=== PATIENT | male | born 1960 | race Caucasian/White ===

== ENCOUNTER 2023-01-14 07:56 | Emergency (ER) | payer OTHER ==
[~2023-01-14] VITALS: Ht 182.9 cm; Wt 81.7 kg
--- OUTSIDE RECORDS SUMMARY | 2023-01-14 08:03 | XMS ---
PreManage Notification: KODI FRANKEL Security Animal Treatment Investigator Events 1 event(s) in the past 18 months Most recent security events: Elopement at [facility] 10/31/2022 08:01 - Patient eloped before treatment completed. - Patient with suicidal and/or homicidal ideations eloped. - Patient eloped with IV in place. Details: Patient LWBS. CRITERIA MET - Group Notification CARE PROVIDERS There are no care providers on record at this time. Tushar has no Care Guidelines for this patient. E.D. VISIT COUNT (12 MO.) 2 [facility]. TOTAL 2 NOTE: Visits indicate total known visits. ED/C VISIT TRACKING (12 MO.) 01/14/2023 07:57 [facility] TYPE: Emergency COMPLAINT: - UPPER ABD PAIN, COLD, SWEATS, VOMITING 10/31/2022 08:01 [facility] [place] TYPE: Emergency COMPLAINT: - DIFFICULTY SWALLOWING, SORE THROAT INPATIENT VISIT TRACKING (12 MO.) No inpatient visits to display in this time frame [id number]
--- NOTE | 2023-01-15 21:39 | EKG ---
[facility] [address] [facility] [place], [place] [address] Signed Normal sinus rhythm Left anterior fascicular block Possible Inferior infarct , age undetermined Anteroseptal infarct , possibly acute ACUTE OK / STEMI Abnormal ECG No previous ECGs available Confirmed by Pradeep Christina MD () on 01/15/2023 9:39:08 PM Electronically Signed By: PRADEEP CHRISTINA MD 01/15/23 2139 PATIENT NAME: KODI FRANKEL Electrocardiogram DATE OF : 62 PHYSICIAN: PRADEEP CHRISTINA MD REPORT #: [id number] REPORT IS CONFIDENTIAL AND NOT TO BE RELEASED WITHOUT AUTHORIZATION
== END 2023-01-14 08:52 | disposition short-term general hospital (02) ==
LOC: ED 07:56
DX: I21.3 ST elevation (STEMI) myocardial infarction of unspecified site (principal); F17.200 Nicotine dependence, unspecified, uncomplicated
CPT/HCPCS: 36415; 71045; 80053; 83690; 84484; 85025; 87502; 93005; 93010; 96374; 96375; 99285-25; A9270; C9803; J1170; J1644; J2405; U0003

== ENCOUNTER 2023-04-03 12:00 | Emergency (ER) | payer OTHER ==
[~2023-04-03] VITALS: Ht 182.9 cm; Wt 86.6 kg
[~2023-04-03 12:00] MED LIST: ENTRESTO 24 MG1 EACH PO; INVOKANA100 MG PO; JARDIANCE10 MG PO; LASIX40 MG PO; LIPITOR80 MG PO; LO-DOSE ASPIRIN81 MG PO; NITROSTAT0.4 MG PO; PLAVIX75 MG PO; PROTONIX40 MG PO; SPIRONOLACTONE25 MG PO; TOPROL XL50 MG PO; WARFARIN SODIUM6 MG PO
--- OUTSIDE RECORDS SUMMARY | 2023-04-03 12:09 | XMS ---
PreManage Notification: KODI FRANKEL Security Mimeograph Operator Events 1 event(s) in the past 18 months Most recent security events: Elopement at [facility] 10/31/2022 08:01 - Patient eloped before treatment completed. - Patient with suicidal and/or homicidal ideations eloped. - Patient eloped with IV in place. Details: Patient LWBS. CRITERIA MET - Group Notification CARE PROVIDERS -Charley- Dentist: Field Test Engineer [facility] PHONE: [phone] Tushar has no Care Guidelines for this patient. EEfren. V[facility] ([facility] MO[address] [facility] NOTE: Visits indicate total known visits. ED/UCC VISIT TRACKING (12 MO.) 04/03/2023 12:01 [facility] TYPE: Emergency COMPLAINT: - FOREIGN OBJECT IN L EYE 01/14/2023 07:57 [facility] TYPE: Emergency COMPLAINT: - UPPER ABD PAIN, COLD, SWEATS, VOMITING DIAGNOSES: - Contact with and (suspected) exposure to COVID-19 - Epigastric pain - Nicotine dependence, unspecified, uncomplicated - ST elevation (STEMI) myocardial infarction of unspecified site 10/31/2022 08:01 [facility] [place] TYPE: Emergency COMPLAINT: - DIFFICULTY SWALLOWING, SORE THROAT INPATIENT VISIT TRACKING (12 MO.) 01/14/2023 10:05 [facility] TYPE: Internal Medicine DIAGNOSES: - Acute systolic (congestive) heart failure - Encounter for screening, unspecified - Ischemic cardiomyopathy - ST elevation (STEMI) myocardial infarction involving left anterior descending coronary artery - Evaluation Of Abnormal Ekg [email or web address]
[2023-04-03] MEDS ORDERED: PANTOPRAZOLE SO40 MG PO (12:52)
[2023-04-03] MEDS ORDERED: CLOPIDOGREL75 MG PO (12:52)
[2023-04-03 13:57] VITALS: BP 101/79
== END 2023-04-03 13:59 | disposition home or self-care (01) ==
LOC: ED 12:00
DX: H57.89 Other specified disorders of eye and adnexa (principal); I10 Essential (primary) hypertension; F17.200 Nicotine dependence, unspecified, uncomplicated; Z79.899 Other long term (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; Z79.01 Long term (current) use of anticoagulants
CPT/HCPCS: 99283

== ENCOUNTER 2023-11-29 06:46 | Emergency (ER) | payer OTHER ==
[~2023-11-29] VITALS: Ht 182.9 cm; Wt 87.8 kg
[~2023-11-29 06:46] MED LIST changes: +CLOPIDOGREL75 MG PO; +PANTOPRAZOLE SO40 MG PO
--- OUTSIDE RECORDS SUMMARY | 2023-11-29 06:55 | XMS ---
PreManage Notification: KODI FRANKEL Security Kennel Assistant Events 1 event(s) in the past 18 months Most recent security events: Elopement at [facility] 10/31/2022 08:01 - Patient eloped with IV in place. - Patient eloped before treatment completed. - Patient with suicidal and/or homicidal ideations eloped. Details: Patient LWBS. CRITERIA MET - Group Notification CARE PROVIDERS -Charley- Dentist: Veterinary Technologist [facility] PHONE: [phone] Tushar has no Care Guidelines for this patient. EEfren. VISIT COUNT (12 MO.) [facility] TOTAL 3 NOTE: Visits indicate total known visits. 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 - Other specified disorders of eye and adnexa 01/14/2023 07:57 [facility] [place] TYPE: Emergency COMPLAINT: - UPPER ABD PAIN, COLD, SWEATS, VOMITING DIAGNOSES: - Contact with and (suspected) exposure to COVID-19 - Epigastric pain - Nicotine dependence, unspecified, uncomplicated - ST elevation (STEMI) myocardial infarction of unspecified site INPATIENT VISIT TRACKING (12 MO.) 01/14/2023 10:05 [facility] TYPE: Internal Medicine DIAGNOSES: - Acute systolic (congestive) heart failure - Encounter for screening, unspecified - Ischemic cardiomyopathy - ST elevation (STEMI) myocardial infarction involving left anterior descending coronary artery - Evaluation Of Abnormal Ekg [id number]
[2023-11-29 07:44] LABS: INFLUENZA B NAA NEGATIVE (NEGATIVE); RESPIRATORY SYNCYTIAL VIR NAA NEGATIVE (NEGATIVE)
[2023-11-29 08:15] LABS: MCV 90.6 fl (81-99)
[2023-11-29 08:19] LABS: EOSINOPHILS 0.8 % (0-6); HEMATOCRIT 41.9 % (35.0-50.0); HEMOGLOBIN 13.8 g/dL (12.0-18.0); LYMPHOCYTES 7.1 % (24-44); MCH 29.9 (27-36); MONOCYTES 9.6 % (0-12); NEUTROPHILS 81.5 % (39-80); PLATELET COUNT 196 K/uL (140-440); RBC 4.63 M/ul (4.3-5.7); RDW 14.8 (10.5-15.0)
[2023-11-29 08:29] LABS: ALBUMIN 3.6 g/dL (3.4-5.0); ALBUMIN/GLOBULIN RATIO 0.92 (1.1-2.4); ANION GAP 14.8 (7-21); BILIRUBIN, TOTAL 0.5 ng/dL (0.2-1.0); BUN/CREATININE RATIO 11.59 (6.0-28.6); CALCIUM 8.4 mg/dL (8.5-10.1); CREATININE, SERUM 1.38 mg/dL (0.70-1.30); POTASSIUM 3.8 mmol/L (3.5-5.1); PROTEIN, TOTAL 7.5 g/dL (6.4-8.2)
[2023-11-29 08:32] LABS: LACTIC ACID, BLOOD 0.9 mmol/L (0.4-2.0)
[2023-11-29] MEDS ORDERED: TAMIFLU75 MG PO (09:35)
[2023-11-29] MEDS ORDERED: VENTOLIN HFA18 GM INH (09:38)
[2023-11-29 09:50] VITALS: BP 171/82
--- NOTE | 2023-11-29 16:38 | EKG ---
[facility] [address] [facility] [place], [place] [address] Signed Normal sinus rhythm Left anterior fascicular block Cannot rule out Inferior infarct (masked by fascicular block?) , age undetermined Anteroseptal infarct , age undetermined Abnormal ECG No previous ECGs available Confirmed by FARHAN RAUSCH MD ([id number]) on 11/29/2023 4:38:44 PM Electronically Signed By: FARHAN RAUSCH 11/29/23 1638 PATIENT NAME: KODI FRANKEL Electrocardiogram DATE OF : 62 PHYSICIAN: FARHAN RAUSCH REPORT #: [id number] REPORT IS CONFIDENTIAL AND NOT TO BE RELEASED WITHOUT AUTHORIZATION
== END 2023-11-29 09:51 | disposition home or self-care (01) ==
LOC: ED 06:46
PROVIDERS: Emergency Medicine
DX: J10.1 Influenza due to other identified influenza virus with other respiratory manifestations (principal); I25.10 Atherosclerotic heart disease of native coronary artery without angina pectoris; I10 Essential (primary) hypertension; F17.200 Nicotine dependence, unspecified, uncomplicated; Z11.52 Encounter for screening for COVID-19; Z79.02 Long term (current) use of antithrombotics/antiplatelets; Z79.01 Long term (current) use of anticoagulants; Z79.84 Long term (current) use of oral hypoglycemic drugs; Z79.899 Other long term (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
CPT/HCPCS: 36415; 71045; 71260; 80053; 83605; 85025; 87502; 94640; 99285-25; Q9967; U0002

== ENCOUNTER 2024-11-23 15:11 | Emergency (ER) | payer OTHER ==
[~2024-11-23] VITALS: Ht 182.9 cm; Wt 82.6 kg
[~2024-11-23 15:11] MED LIST changes: +K-TAB ER20 MEQ PO; +LASIX20 MG PO; +TAMIFLU75 MG PO; +VENTOLIN HFA18 GM INH
--- OUTSIDE RECORDS SUMMARY | 2024-11-23 15:18 | XMS ---
PreManage Notification: KODI FRANKEL Security Pharmacy Customer Care Specialist Events No recent Security Events currently on file CRITERIA MET - Group Notification CARE PROVIDERS -, [facility] Dentist: Electric Wirer Current [place] PHONE: [phone] -Charley- Dentist: Electric Wirer Current [facility] PHONE: [phone] [facility]: [facility] Current FAMILY PHONE: [phone] Tushar has no Care Guidelines for this patient. E.D. VISIT COUNT (12 MO.) 3 [facility] TOTAL 3 NOTE: Visits indicate total known visits. ED/UCC VISIT TRACKING (12 MO.) 11/23/2024 15:12 [facility] TYPE: Emergency COMPLAINT: - TROUBLE BREATHING 01/17/2024 13:30 [facility] TYPE: Emergency COMPLAINT: - SOB, COUGH, CHEST CONGESTION DIAGNOSES: - Cough, unspecified - Heart failure, unspecified - Hypertensive heart disease with heart failure - meterman (current) use of anticoagulants - group home (current) use of antithrombotics/antiplatelets - group home (current) use of oral hypoglycemic drugs - Nicotine dependence, unspecified, uncomplicated - Other lobsterman (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 - Other specified symptoms and signs involving the circulatory and respiratory systems 11/29/2023 06:[address] [facility] [place] TYPE: Emergency COMPLAINT: - SOB, FEEL SICK DIAGNOSES: - Atherosclerotic heart disease of [place] coronary artery without angina pectoris - Cough, unspecified - Encounter for screening for COVID-19 - Essential (primary) hypertension - Influenza due to other identified influenza virus with other respiratory manifestations - group home (current) use of anticoagulants - group home (current) use of antithrombotics/antiplatelets - group home (current) use of oral hypoglycemic drugs - Nicotine dependence, unspecified, uncomplicated - Other lobsterman (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 INPATIENT VISIT TRACKING (12 MO.) No inpatient visits to display in this time frame [id number]
[2024-11-23] MEDS ORDERED: ALBUTEROL/IPRATROPIUM 3 ML NEB INH PRN (15:30)
[2024-11-23 15:40] LABS: EOSINOPHILS 1.8 % (0-6); HEMATOCRIT 35.6 % (35.0-50.0); HEMOGLOBIN 11.8 g/dL (12.0-18.0); LYMPHOCYTES 11.2 % (24-44); MCH 28.7 (27-36); MCHC 33.2 g/dl (30-36); MCV 86.4 fl (81-99); MONOCYTES 9.7 % (0-12); NEUTROPHILS 76.3 % (39-80); PLATELET COUNT 249 K/uL (140-440); RBC 4.11 M/ul (4.3-5.7); RDW 15.3 (10.5-15.0)
[2024-11-23 16:03] LABS: ALBUMIN 2.9 g/dL (3.4-5.0); ALBUMIN/GLOBULIN RATIO 0.83 (1.1-2.4); ANION GAP 11.2 (7-21); BILIRUBIN, TOTAL 0.5 ng/dL (0.2-1.0); BUN/CREATININE RATIO 19.37 (6.0-28.6); CALCIUM 8.1 mg/dL (8.5-10.1); CREATININE, SERUM 1.29 mg/dL (0.70-1.30); MAGNESIUM 2.1 mg/dL (1.8-2.4); POTASSIUM 4.2 mmol/L (3.5-5.1); PROTEIN, TOTAL 6.4 g/dL (6.4-8.2)
[2024-11-23] MEDS ORDERED: LASIX20 MG PO (18:34)
[2024-11-23 18:59] VITALS: BP 154/106
--- NOTE | 2024-11-25 20:30 | EKG ---
[facility] [address] [facility] [place] [address] Signed Sinus rhythm with occasional premature ventricular complexes Low voltage QRS Left anterior fascicular block Cannot rule out Anteroseptal infarct (cited on or before 23-NOV-2024) Abnormal ECG When compared with ECG of 17-JAN-2024 16:29, premature ventricular complexes are now present Left anterior fascicular block is now present Questionable change in initial forces of Lateral leads Confirmed by Sera Goetz DO ([id number]) on 11/25/2024 8:30:27 PM Electronically Signed By: SERA GOETZ DO 11/25/24 2030 PATIENT NAME: KODI FRANKEL Electrocardiogram DATE OF : 62 PHYSICIAN: SERA GOETZ DO REPORT #: [id number] REPORT IS CONFIDENTIAL AND NOT TO BE RELEASED WITHOUT AUTHORIZATION
== END 2024-11-23 19:59 | disposition home or self-care (01) ==
LOC: ED 15:11
PROVIDERS: Emergency Medicine
DX: I11.0 Hypertensive heart disease with heart failure (principal); I50.9 Heart failure, unspecified; T50.1X6A Underdosing of loop [high-ceiling] diuretics, initial encounter; F17.200 Nicotine dependence, unspecified, uncomplicated; Z79.899 Other long term (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; Z91.148 Patient's other noncompliance with medication regimen for other reason
CPT/HCPCS: 36415; 71045; 80053; 83735; 83880; 84484; 85025; 93005; 93010; 99285-25

== ENCOUNTER 2024-11-28 22:51 | Inpatient (IN) | payer OTHER ==
[~2024-11-28] VITALS: Ht 182.9 cm; Wt 75.0 kg
--- OUTSIDE RECORDS SUMMARY | 2024-11-28 22:59 | XMS ---
PreManage Notification: KODI FRANKEL Security Line Prep Cook Events No recent Security Events currently on file CRITERIA MET - Group Notification - [facility] - 2 Visits in 30 Days CARE PROVIDERS -, [facility] Dentist: Deputy Director Of Finance [facility] PHONE: [phone] -Charley- Dentist: Deputy Director Of Finance Current [facility] PHONE: [phone] [facility]/Caroline: [facility] Current FAMILY PHONE: [phone] Tushar has no Care Guidelines for this patient. E.D. VISIT COUNT (12 MO.) 4 [facility] TOTAL 4 NOTE: Visits indicate total known visits. ED/UCC VISIT TRACKING (12 MO.) 11/28/2024 22:52 [facility] TYPE: Emergency COMPLAINT: - DIFFICULTY BREATHING 11/23/2024 15:12 [facility] TYPE: Emergency COMPLAINT: - TROUBLE BREATHING DIAGNOSES: - Heart failure, unspecified - Hypertensive heart disease with heart failure - Nicotine dependence, unspecified, uncomplicated - Other watermaster (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 - Patient's other noncompliance with medication regimen for other reason - Shortness of breath - Underdosing of loop [high-ceiling] diuretics, initial encounter 01/17/2024 13:30 [facility] TYPE: Emergency COMPLAINT: - SOB, COUGH, CHEST CONGESTION DIAGNOSES: - Cough, unspecified - Heart failure, unspecified - Hypertensive heart disease with heart failure - tank terminal gauger (current) use of anticoagulants - detention (current) use of antithrombotics/antiplatelets - detention (current) use of oral hypoglycemic drugs - Nicotine dependence, unspecified, uncomplicated - Other intermediate (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 - Other specified symptoms and signs involving the circulatory and respiratory systems 11/29/2023 06:46 [facility] TYPE: Emergency COMPLAINT: - SOB, FEEL SICK DIAGNOSES: - Atherosclerotic heart disease of [place] coronary artery without angina pectoris - Cough, unspecified - Encounter for screening for COVID-19 - Essential (primary) hypertension - Influenza due to other identified influenza virus with other respiratory manifestations - tank terminal gauger (current) use of anticoagulants - detention (current) use of antithrombotics/antiplatelets - tank terminal gauger (current) use of oral hypoglycemic drugs - Nicotine dependence, unspecified, uncomplicated - Other intermediate (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 INPATIENT VISIT TRACKING (12 MO.) No inpatient visits to display in this time frame [id number]
[2024-11-28] MEDS ORDERED: ALBUTEROL/IPRATROPIUM 3 ML NEB INH ONE (23:15)
[2024-11-28 23:37] LABS: BASOPHILS 0.9 % (0-2); EOSINOPHILS 0.6 % (0-6); HEMATOCRIT 38.1 % (35.0-50.0); HEMOGLOBIN 12.6 g/dL (12.0-18.0); LYMPHOCYTES 8.3 % (24-44); MCH 28.4 (27-36); MCHC 33.1 g/dl (30-36); MCV 85.8 fl (81-99); MONOCYTES 7.9 % (0-12); NEUTROPHILS 82.3 % (39-80); PLATELET COUNT 319 K/uL (140-440); RBC 4.44 M/ul (4.3-5.7); RDW 15.3 (10.5-15.0)
[2024-11-28] MEDS ORDERED: ALBUTEROL SULFATE 0.5% 2.5 MG/0.5 ML VIAL INH ONE (23:45)
[2024-11-28] MEDS ORDERED: methylPREDNISolone SOD SUCC 125 MG/2 ML VIAL IV ONE (23:45)
[2024-11-28 23:57] LABS: ALBUMIN 2.7 g/dL (3.4-5.0); ALBUMIN/GLOBULIN RATIO 0.63 (1.1-2.4); ANION GAP 9.8 (7-21); BILIRUBIN, TOTAL 0.4 ng/dL (0.2-1.0); BUN/CREATININE RATIO 9.48 (6.0-28.6); CALCIUM 8.7 mg/dL (8.5-10.1); CREATININE, SERUM 1.37 mg/dL (0.70-1.30); POTASSIUM 3.8 mmol/L (3.5-5.1)
[2024-11-29] VITALS (13 sets, daily range): BP systolic 102–154; BP diastolic 69–116
[2024-11-29] MEDS ORDERED: FUROSEMIDE 40 MG/4 ML VIAL IV ONE (00:15)
[2024-11-29 01:31] LABS: BASE EXCESS, BLOOD GAS 2.2 mmol/L (-2-2); HCO3, BLOOD GAS 25.5 mmol/L (22-26); O2 SATURATION, BLOOD GAS 89.9 % (95.0-100.0); PCO2, BLOOD GAS 36.2 mmHg (35-45); PH, BLOOD GAS 7.46 (7.35-7.45); TOTAL CO2, BLOOD GAS 26.6
[2024-11-29 02:04] LABS: INFLUENZA B NAA NEGATIVE (NEGATIVE); RESPIRATORY SYNCYTIAL VIR NAA NEGATIVE (NEGATIVE)
[2024-11-29] MEDS ORDERED: AZITHROMYCIN 500 MG in DEXTROSE 5% 250 ML IV ONE (02:45)
[2024-11-29] MEDS ORDERED: CEFTRIAXONE/SODIUM CHLORIDE 2 GM/100 ML PIGGYBACK IV ONE (02:45)
[2024-11-29] MEDS ORDERED: AZITHROMYCIN/DEXTROSE 500 MG/250 ML PIGGYBACK ONE (02:48)
[2024-11-29] MEDS ORDERED: ALBUTEROL/IPRATROPIUM 3 ML NEB INH SCH ×2 (04:00→04:45)
[2024-11-29] MEDS ORDERED: ACETAMINOPHEN 325 MG TAB PO PRN ×2 (04:45→10:15)
[2024-11-29] MEDS ORDERED: ALBUTEROL/IPRATROPIUM 3 ML NEB ONE (04:47)
--- NOTE | 2024-11-29 05:24 | NUR ---
PATIENT KODI ARRIVED TO THE UNIT VIA [facility] AT 0422. HE WAS REQUIRING 15L NC WHICH WAS SWITCHED TO VAPOTHERM 30L/ 40% ALERT AND ORIENTED X4, SLURRED SPEECH DUE TO MISSING TEETH, ABLE TO STAND AND WALK AT BASELINE, PERRL, GOOD HISTORIAN, ENDORSES COMFORT CARDIAC- SR-ST, 1+ EDEMA IN BILATERAL LOWER EXTREMTIES, AFEBRILE, PALPABLE PULSES RESP- COARSE/ DIMINISHED/ WHEEZING, VAPOTHERM 30L/ 40%, 87-92 SPO2 GOAL GI/- CLEAR LIQUID DIET, ENDORSES GOOD APPETITE, NORMOACTIVE BOWEL TONES, LAST BOWEL MOVEMENT 11/28/24, SARA INT- SEE ASSESSMENT 20G RIGHT FOREARM PATENT AND INTACT
--- NOTE | 2024-11-29 06:59 | NUR ---
SPO2 95%. VAPOTHERM ADJUSTED TO 25L 40% FOR AN O2 GOAL OF 87-92%
[2024-11-29 07:33] LABS: BASOPHILS 0.1 % (0-2); HEMATOCRIT 38.3 % (35.0-50.0); HEMOGLOBIN 12.8 g/dL (12.0-18.0); LYMPHOCYTES 3.6 % (24-44); MCH 28.4 (27-36); MCHC 33.5 g/dl (30-36); MCV 84.6 fl (81-99); MONOCYTES 1.8 % (0-12); NEUTROPHILS 94.5 % (39-80); PLATELET COUNT 313 K/uL (140-440); RBC 4.53 M/ul (4.3-5.7); RDW 15.4 (10.5-15.0)
[2024-11-29 07:43] LABS: ANION GAP 13.5 (7-21); BUN/CREATININE RATIO 8.28 (6.0-28.6); CALCIUM 8.4 mg/dL (8.5-10.1); CREATININE, SERUM 1.69 mg/dL (0.70-1.30); POTASSIUM 3.5 mmol/L (3.5-5.1)
[2024-11-29] MEDS ORDERED: BUDESONIDE 0.5 MG/2 ML VIAL INH SCH (08:00)
--- NOTE | 2024-11-29 08:06 | NUR ---
Report received from Jane EGAN. Patient resting in bed after neb tx with vapotherm in place, settings per RT. 30L and FIO2 at 40% currently. Even and unlabored respirations with spo2 90%.
--- NOTE | 2024-11-29 08:51 | NUR ---
Assessment of patient complete. Pt states with prior MD and stent experience that his symptoms now do not resemble that time. He reports no CP or SOB. When asked he states he cannot remember his last alcohol intake, states "it's been a long while" and currently cutting down on his smoking to "1 cigar per week, down from 2-3, but uses chewing tobacco" denies needing nicotine patch at this time. Pt is diaphoretic but afebrile. Remains on vapotherm with spo2 94%, patient has trouble keeping cannula in place.
[2024-11-29] MEDS ORDERED: LACTATED RINGER'S 1,000 ML IV SCH (10:15)
[2024-11-29] MEDS ORDERED: ondansetron HCL 4 MG/2 ML VIAL IV PRN (10:15)
[2024-11-29] MEDS ORDERED: methylPREDNISolone SOD SUCC 40 MG/ML VIAL IV SCH (10:15)
[2024-11-29] MEDS ORDERED: IBLOOD GLUCOSE TEST STRIP 1 EA TEST XX PRN (10:30)
[2024-11-29] MEDS ORDERED: DEXTROSE 5% 1,000 ML IV PRN (10:30)
[2024-11-29] MEDS ORDERED: GLUCAGON,HUMAN RECOMBINANT 1 MG/ML VIAL SUB-Q PRN (10:30)
[2024-11-29] MEDS ORDERED: DEXTROSE 50% 50 ML SYR IV PRN ×2 (10:30)
--- NOTE | 2024-11-29 11:04 | NUR ---
Scheduled medications administered and IVF infusing. Patient educated regarding CT scan and is receptive.
--- NOTE | 2024-11-29 11:35 | NUR ---
Patient to CT with this RN
[2024-11-29] MEDS ORDERED: INSULIN LISPRO 100 UNIT/ML ML SUB-Q SCH (12:00)
[2024-11-29] MEDS ORDERED: PHARMACY RENAL DOSE ADJUSTMENT 1 DOSE MISC PO SCH (12:00)
[2024-11-29] MEDS ORDERED: IBLOOD GLUCOSE TEST STRIP 1 EA TEST XX SCH (12:00)
--- NOTE | 2024-11-29 12:30 | NUR ---
CBG checked and insulin given and patient given extensive education regarding glucose testing and treatment, POC. pt is agreeable and states "my mother had diabetes, it is controllable with diet" this RN provides encouragement and education.
[2024-11-29] MEDS ORDERED: metroNIDAZOLE 250 MG TAB PO SCH (13:15)
[2024-11-29] MEDS ORDERED: AZITHROMYCIN 250 MG TAB PO SCH (13:15)
[2024-11-29] MEDS ORDERED: CEFTRIAXONE/SODIUM CHLORIDE 1 GM/100 ML PIGGYBACK IV SCH (13:15)
--- NOTE | 2024-11-29 14:20 | NUR ---
Patient given scheduled ABX, IV and PO. Tolerates well. Dr Hinkle in room to round, educated patient on broncho PNA and CPT, ABX and plan of care.
--- NOTE | 2024-11-29 16:35 | NUR ---
Pt diaphoretic with visible beads on forehead and shoulders, denies other symptoms, afebrile. Replaced telemetry leads several times due to poor reading
--- NOTE | 2024-11-29 17:57 | NUR ---
Patient sitting up in bed eating dinner. On 4L NC and spo2 90%. Goal of care to use vapotherm as much as patient tolerates to provide humidification/pressure for mucus plugging. Discussed with patient who is agreeable.
[2024-11-29] MEDS ORDERED: POTASSIUM CHLORIDE 10 MEQ TABCR PO ONE (18:45)
--- NOTE | 2024-11-29 22:01 | NUR ---
PM CARES COMPLETED. SINA IN ROOM. KODI STATES THAT HE FEELS AND LOOKS MUCH BETTER WHEN COMPARED TO YESTERDAY. 3UNITS OF INSULIN GIVEN TONIGHT. SEE EMAR FOR DETAILS. PM SNACKS GRANOLA, JELLO, GREEN TEA, AND FRUIT CUP GIVEN AND CONSUMED. NC 4L, BREATH SOUNDS CLAR/DIM. PRODUCTIVE COUGH. NEURO- ALERT AND ORIENTED X4, MOVES ALL EXTREMITIES, DENIES PAIN, ABLE TO TO EXPRESS ALL NEEDS AND DESIRES, STAND BY ASSIST TO BATHROOM CARDIAC- SINUS TACHYCARDIA 102-110, AFEBRILE, PALPABLE PULSES, 133/104 (113) RESP- 14RR, COUGH, BREATH SOUNDS CLEAR/DIM GI/-SOFT ABDOMEN, NORMOACTIVE BOWEL TONES, GENERAL DIET, VOIDING IN RESTROOM INT- SEE ASSESSMENT
[2024-11-29] MEDS ORDERED: ALBUTEROL SULFATE 0.083% 3 ML VIAL INH PRN (22:45)
--- NOTE | 2024-11-29 22:47 | NUR ---
KODI IS RESTING IN BED WITH EYES CLOSED ON LEFT SIDE. 4L NC. O2 SATS 92%, HR 114, 133/104 (113). APPEARS COMFORTABLE. NO NEEDS IDENTIFIED AT THIS TIME.
--- NOTE | 2024-11-29 23:33 | NUR ---
SINUS TACHYCARDIA WITH MULTIPLE PVC'S NOTED WHILE AT REST. KODI RESTS WITH HIS MOUTH OPEN. 4L OXYMASK PLACED. HE WAS ALSO NOTED TO BE DIAPHORETIC. HE IS AFEBRILE AND ENDORSES COMFORT. ALL CARDIAC LEADS CHANGED ROOM TEMPERATURE DECREASED
[2024-11-30] MEDS ORDERED: ALBUTEROL/IPRATROPIUM 3 ML NEB INH SCH
--- NOTE | 2024-11-30 00:51 | NUR ---
KODI IS AWAKE, ALERT AND ORIENTED. SNACK REQUESTED AND PROVIDED WITH A GRANOLA BAR AND TEA. SPO2 MONITOR STICKER CHANGED. NO OTHER NEEDS IDENTIFIED AT THIS TIME
[2024-11-30 00:55] VITALS: BP 149/100
--- NOTE | 2024-11-30 03:59 | NUR ---
KODI IS RESTING ON RIGHT SIDE. HE IS NOTED TO BE DIAPHORETIC. AXILLARY TEMPERATURE TAKEN 98.1. HE APPEARS COMFORTABLE AND DOES NOT APPEAR TO BE IN DISTRESS. 4L OXYMASK IN PLACE, SPO2 93. VSS PER MONITOR.
[2024-11-30 04:33] VITALS: BP 113/69
--- NOTE | 2024-11-30 05:15 | NUR ---
KODI USED CALL LIGHT TO REPORT RESTROOM NEEDS. KWADWO ASSIST TO RESTROOM. 1100 CC OF HAMLET/CLEAR URINE VOIDED. AM SNACK PROVIDED. BACK IN BED. KODI STATES THAT HE IS LOOKING FORWARD TO BREAKFAST
[2024-11-30 05:47] LABS: BASOPHILS 0.4 % (0-2); HEMATOCRIT 37.2 % (35.0-50.0); HEMOGLOBIN 12.3 g/dL (12.0-18.0); LYMPHOCYTES 7.2 % (24-44); MCHC 33.2 g/dl (30-36); MCV 84.2 fl (81-99); MONOCYTES 8.1 % (0-12); NEUTROPHILS 84.3 % (39-80); PLATELET COUNT 352 K/uL (140-440); RBC 4.41 M/ul (4.3-5.7); RDW 15.6 (10.5-15.0)
[2024-11-30 06:07] LABS: BUN/CREATININE RATIO 14.64 (6.0-28.6); CALCIUM 9.1 mg/dL (8.5-10.1); CREATININE, SERUM 1.57 mg/dL (0.70-1.30); MAGNESIUM 2.2 mg/dL (1.8-2.4)
--- NOTE | 2024-11-30 06:52 | NUR ---
KODI WAS GIVEN SOME TEA WITH HONEY AND LEMON FOR HIS STRONG COUGH. THIS TEA WAS EFFECTIVE. NOW RESTING IN BED WITH EYES CLOSED. HE APPEARS COMFORTABLE
[2024-11-30] MEDS ORDERED: LACTATED RINGER'S 1,000 ML IV SCH (07:30)
--- NOTE | 2024-11-30 07:38 | NUR ---
respiratory therapy in room.
--- NOTE | 2024-11-30 08:15 | NUR ---
BREAKFAST TRAY BROUGHT TO ROOM. PATIENT EATS 100% NO NEEDS AT THIS TIME. PATIENT REPORTS FEELING BETTER TODAY.
[2024-11-30 08:40] VITALS: BP 133/99
[2024-11-30] MEDS ORDERED: ENOXAPARIN SODIUM 40 MG/0.4 ML SYR SUB-Q SCH (09:00)
--- NOTE | 2024-11-30 10:59 | NUR ---
PATIENT NAPPING IN ROOM ON ROOM AIR AT THIS TIME. OXYGEN SATS >90%.
--- NOTE | 2024-11-30 11:06 | NUR ---
UR CLINICAL REVIEW: [facility] [place] [place]MEETS INPT FOR PNEUMONIA ODS EOCCO OBS TO INPT 11/30/23 @ 0918 WILL UPDATE REG CLINICAL FAXED TO [facility] FOR AUTH REVIEW DISCHARGE TO HOME WHEN STABLE 12/01/24
--- NOTE | 2024-11-30 11:15 | NUR ---
In and spoke with Carlton. He states he lives in ground level house. He resides with his girlfriend and some other friends. He has a cane and walker available, but does not use. His license is suspended, but his brother will drive him home on dc. Pt denies any needs and plans on dc as soon as agrees.
--- NOTE | 2024-11-30 11:22 | NUR ---
CASE MANAGEMENT IN ROOM. PATIENT DENIES NEEDS.
--- NOTE | 2024-11-30 13:32 | NUR ---
VISITED DURING SPIRITUAL CARE ROUNDS. PT APPEARED TO BE SLEEPING. DID NOT DISTURB. PROVIDED PRAYER.
--- NOTE | 2024-11-30 13:42 | NUR ---
PATIENT DESATS TO 80S WHEN ASLEEP. PLACED ON 2 L O2 NC
--- NOTE | 2024-11-30 14:08 | NUR ---
ROAD TEST WIHTOUT OXYGEN SUCCESSFUL. SAT S>90%. PATIENT REPORTS SOME SHORTNESS OF BREATH WITH ACTIVITY BUT SATS REMAIN IN THE MID 90S. NOTIFIED
[2024-11-30 14:09] VITALS: BP 141/81
[2024-11-30] MEDS ORDERED: LEVOFLOXACIN750 MG PO (14:17)
--- NOTE | 2024-11-30 14:39 | NUR ---
ESCORTED PATIENT TO VEHICLE DRIVEN BY HIS BROTHER. DENIED QUESTIONS OR CONCERNS AT DC
== END 2024-11-30 14:30 | disposition home or self-care (01) | DRG 193 ==
LOC: ED 22:51 → CCU 22:53
PROVIDERS: Emergency Medicine; ADMIT Student in an Organized Health Care Education/Training Program; ATTEND Student in an Organized Health Care Education/Training Program
DX: J18.0 Bronchopneumonia, unspecified organism (principal); J96.01 Acute respiratory failure with hypoxia; E87.1 Hypo-osmolality and hyponatremia; I50.9 Heart failure, unspecified; I25.10 Atherosclerotic heart disease of native coronary artery without angina pectoris; F17.290 Nicotine dependence, other tobacco product, uncomplicated; I11.0 Hypertensive heart disease with heart failure; I25.2 Old myocardial infarction; Z95.5 Presence of coronary angioplasty implant and graft
CPT/HCPCS: 36415; 36600; 71045; 71260; 80048; 80053; 82803; 83036; 83735; 83880; 85025; 85379; 87502; 93306; 94640; 94667; 94668; 94762; 94799; 97161; A9270; J0456; J0696; J1650; J1815; J1940; J2919; J7060; J7121; Q9967; U0002

== ENCOUNTER 2025-01-08 05:30 | Emergency (ER) | payer OTHER ==
[~2025-01-08] VITALS: Ht 182.9 cm; Wt 81.6 kg
[2025-01-08 05:48] LABS: BASOPHILS 1.4 % (0-2); EOSINOPHILS 3.6 % (0-6); HEMATOCRIT 33.8 % (35.0-50.0); LYMPHOCYTES 20.7 % (24-44); MCH 26.7 (27-36); MCHC 32.7 g/dl (30-36); MCV 81.7 fl (81-99); MONOCYTES 12.1 % (0-12); NEUTROPHILS 62.2 % (39-80); PLATELET COUNT 279 K/uL (140-440); RBC 4.13 M/ul (4.3-5.7); RDW 17.1 (10.5-15.0)
[2025-01-08 06:09] LABS: ALBUMIN 3.1 g/dL (3.4-5.0); ALBUMIN/GLOBULIN RATIO 0.94 (1.1-2.4); ANION GAP 14.1 (7-21); BILIRUBIN, TOTAL 0.6 ng/dL (0.2-1.0); BUN/CREATININE RATIO 19.4 (6.0-28.6); CALCIUM 8.7 mg/dL (8.5-10.1); CREATININE, SERUM 1.34 mg/dL (0.70-1.30); MAGNESIUM 2.1 mg/dL (1.8-2.4); POTASSIUM 4.1 mmol/L (3.5-5.1); PROTEIN, TOTAL 6.4 g/dL (6.4-8.2)
[2025-01-08] MEDS ORDERED: FUROSEMIDE 40 MG/4 ML VIAL IV ONE (06:15)
[2025-01-08 07:18] VITALS: BP 149/93
== END 2025-01-08 07:18 | disposition home or self-care (01) ==
LOC: ED 05:30
PROVIDERS: Emergency Medicine
DX: I11.0 Hypertensive heart disease with heart failure (principal); I50.9 Heart failure, unspecified; T50.1X6A Underdosing of loop [high-ceiling] diuretics, initial encounter; I25.2 Old myocardial infarction; J44.9 Chronic obstructive pulmonary disease, unspecified; F17.200 Nicotine dependence, unspecified, uncomplicated; Z91.148 Patient's other noncompliance with medication regimen for other reason; Z79.82 Long term (current) use of aspirin
CPT/HCPCS: 36415; 71045; 80053; 83735; 83880; 84484; 85025; 93005; 93010; 96374; 99285-25; J1940

== ENCOUNTER 2025-01-24 00:17 | Emergency (ER) | payer OTHER ==
[~2025-01-24] VITALS: Ht 182.9 cm; Wt 79.4 kg
[~2025-01-24 00:17] MED LIST changes: +ASPIRIN81 MG PO; +LEVOFLOXACIN750 MG PO
--- OUTSIDE RECORDS SUMMARY | 2025-01-24 00:18 | XMS ---
PreManage Notification: KODI FRANKEL Security Undercover Operator Events No recent Security Events currently on file CRITERIA MET - Group Notification - [facility] - 2 Visits in 30 Days CARE PROVIDERS -, [facility] Dentist: Freelance Photographer [facility] PHONE: [phone] -Charley- Dentist: Freelance Photographer Current [facility] PHONE: [phone] [facility]/[place]: [facility] Current FAMILY PHONE: [phone] Tushar has no Care Guidelines for this patient. E.D. VISIT COUNT (12 MO.) [address] [facility] TOTAL 4 NOTE: Visits indicate total known visits. 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 - Nicotine dependence, unspecified, uncomplicated - Old myocardial infarction - Patient's other noncompliance with medication regimen for other reason - Shortness of breath - Underdosing of loop [high-ceiling] diuretics, initial encounter 11/28/2024 22:52 [facility] TYPE: Emergency COMPLAINT: - DIFFICULTY BREATHING 11/23/2024 15:12 [facility] TYPE: Emergency COMPLAINT: - TROUBLE BREATHING DIAGNOSES: - Heart failure, unspecified - Hypertensive heart disease with heart failure - Nicotine dependence, unspecified, uncomplicated - Other truck 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 manager (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 - Patient's other noncompliance with medication regimen for other reason - Shortness of breath - Underdosing of loop [high-ceiling] diuretics, initial encounter INPATIENT VISIT TRACKING (12 MO.) 11/30/2024 09:18 [facility] TYPE: Critical Care COMPLAINT: - CHF COPD DIAGNOSES: - Acute respiratory failure with hypoxia - Atherosclerotic heart disease of [place] coronary artery without angina pectoris - Bronchopneumonia, unspecified organism - Heart failure, unspecified - Hypertensive heart disease with heart failure - Hypo-osmolality and hyponatremia - Nicotine dependence, other tobacco product, uncomplicated - Old myocardial infarction - Presence of coronary angioplasty implant and graft - Shortness of breath [email or web address]
[2025-01-24] MEDS ORDERED: GABAPENTIN100 MG PO (00:34)
[2025-01-24] MEDS ORDERED: ACYCLOVIR800 MG PO (00:34)
[2025-01-24] MEDS ORDERED: ACYCLOVIR 400 MG TAB PO ONE (00:45)
[2025-01-24] MEDS ORDERED: GABAPENTIN 300 MG CAP PO ONE (00:45)
[2025-01-24 00:50] VITALS: BP 152/106
== END 2025-01-24 00:50 | disposition home or self-care (01) ==
LOC: ED 00:17
DX: B02.9 Zoster without complications (principal); I11.0 Hypertensive heart disease with heart failure; I50.9 Heart failure, unspecified; I25.2 Old myocardial infarction; J44.9 Chronic obstructive pulmonary disease, unspecified; F17.200 Nicotine dependence, unspecified, uncomplicated; Z79.82 Long term (current) use of aspirin; Z79.899 Other long term (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
CPT/HCPCS: 99282; A9270

== ENCOUNTER 2025-03-10 22:42 | Emergency (ER) | payer OTHER ==
[~2025-03-10] VITALS: Ht 182.9 cm; Wt 78.0 kg
[~2025-03-10 22:42] MED LIST changes: +ACYCLOVIR800 MG PO; +GABAPENTIN100 MG PO
--- OUTSIDE RECORDS SUMMARY | 2025-03-10 22:49 | XMS ---
PreManage Notification: KODI FRANKEL Security Risk Advisor Events No recent Security Events currently on file CRITERIA MET - Group Notification CARE PROVIDERS -, [facility] Dentist: Portuguese Tutor Current [place] PHONE: [phone] -hCarley- Dentist: Portuguese Tutor Current [facility] PHONE: [phone] [facility]/Center: [facility] Current FAMILY PHONE: [phone] Tushar has no Care Guidelines for this patient. E.D. VISIT COUNT (12 MO.) 5 [facility]on TOTAL 5 NOTE: Visits indicate total known visits. ED/UCC VISIT TRACKING (12 MO.) 03/10/2025 22:43 [facility] [place] TYPE: Emergency COMPLAINT: - DIFFICULTY BREATHING 01/24/2025 00:18 [facility] TYPE: Emergency COMPLAINT: - POSS DON DIAGNOSES: - Chronic obstructive pulmonary disease, unspecified - Heart failure, unspecified - Hypertensive heart disease with heart failure - termite renewal inspector (current) use of aspirin - Nicotine dependence, unspecified, uncomplicated - Old myocardial infarction - Other prison (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 - Rash and other nonspecific skin eruption - Zoster without complications 01/08/2025 05:30 [facility] TYPE: Emergency COMPLAINT: - DIFFICULTY BREATHING DIAGNOSES: - Chronic obstructive pulmonary disease, unspecified - Heart failure, unspecified - Hypertensive heart disease with heart failure - intermediate (current) use of aspirin - Nicotine dependence, [...] - Nicotine dependence, unspecified, uncomplicated - Other long wall shear operator (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 - Patient's other noncompliance with medication regimen for other reason - Shortness of breath - Underdosing of loop [high-ceiling] diuretics, initial encounter INPATIENT VISIT TRACKING (12 MO.) 11/30/2024 09:[address] [facility] [place] TYPE: Critical Care COMPLAINT: - CHF COPD DIAGNOSES: - Acute respiratory failure with hypoxia - Atherosclerotic heart disease of [place] coronary artery without angina pectoris - Bronchopneumonia, unspecified organism - Heart failure, unspecified - Hypertensive heart disease with heart failure - Hypo-osmolality and hyponatremia - Nicotine dependence, other tobacco product, uncomplicated - Old myocardial infarction - Presence of coronary angioplasty implant and graft - Shortness of breath [email or web address]
[2025-03-10 23:10] LABS: HEMOGLOBIN 12.2 g/dL (12.0-18.0); LYMPHOCYTES 11.9 % (24-44); MCH 26.9 (27-36); MCHC 32.9 g/dl (30-36); MCV 81.8 fl (81-99); MONOCYTES 6.2 % (0-12); NEUTROPHILS 78.9 % (39-80); PLATELET COUNT 259 K/uL (140-440); RBC 4.52 M/ul (4.3-5.7); RDW 20.1 (10.5-15.0)
[2025-03-10] MEDS ORDERED: FUROSEMIDE 100 MG/10 ML VIAL IV ONE (23:15)
[2025-03-10 23:34] LABS: ALBUMIN 3.5 g/dL (3.4-5.0); ALBUMIN/GLOBULIN RATIO 0.9 (1.1-2.4); ANION GAP 10.1 (7-21); BILIRUBIN, TOTAL 1.2 mg/dL (0.2-1.0); BUN/CREATININE RATIO 14.7 (6.0-28.6); CALCIUM 8.5 mg/dL (8.5-10.1); CREATININE, SERUM 1.36 mg/dL (0.70-1.30); POTASSIUM 4.1 mmol/L (3.5-5.1); PROTEIN, TOTAL 7.4 g/dL (6.4-8.2)
[2025-03-10] MEDS ORDERED: ALBUTEROL/IPRATROPIUM 3 ML NEB INH ONE (23:45)
[2025-03-10] MEDS ORDERED: CEFTRIAXONE SODIUM 2 GM in SODIUM CHLORIDE 0.9% 100 ML IV ONE (23:45)
[2025-03-10] MEDS ORDERED: methylPREDNISolone SOD SUCC 125 MG/2 ML VIAL IV ONE (23:45)
[2025-03-11 00:30] LABS: LACTIC ACID, BLOOD 1.4 mmol/L (0.4-2.0)
[2025-03-11 00:47] LABS: BILIRUBIN, URINE NEGATIVE (negative); BLOOD/HGB, URINE NEGATIVE (Negative); KETONE, URINE NEGATIVE (Negative); LEUK ESTERASE, URINE NEGATIVE (negative); NITRITE, URINE NEGATIVE (negative)
[2025-03-11] MEDS ORDERED: PREDNISONE20 MG PO (01:37)
[2025-03-11] MEDS ORDERED: LASIX20 MG PO (01:37)
[2025-03-11] MEDS ORDERED: POTASSIUM CHLO10 MEQ PO (01:37)
[2025-03-11] MEDS ORDERED: AMOX TR-K CLV1 EAC1 PO (01:37)
[2025-03-11 01:55] VITALS: BP 158/104
[2025-03-11] MEDS ORDERED: VALTREX1000 MG PO (02:05)
--- NOTE | 2025-03-11 10:39 | EKG ---
[facility] [address] [facility] [place] [address] Signed Normal sinus rhythm Incomplete right bundle branch block Left anterior fascicular block Anterolateral infarct (cited on or before 23-NOV-2024) Abnormal ECG When compared with ECG of 08-JAN-2025 05:46, Incomplete right bundle branch block is now present Confirmed by Sera Goetz DO ([id number]) on 03/11/2025 10:39:08 AM Electronically Signed By: SERA GOETZ DO 03/11/25 1039 PATIENT NAME: KODI FRANKEL Electrocardiogram DATE OF : 62 PHYSICIAN: SERA GOETZ DO REPORT #: [id number] REPORT IS CONFIDENTIAL AND NOT TO BE RELEASED WITHOUT AUTHORIZATION
== END 2025-03-11 01:55 | disposition home or self-care (01) ==
LOC: ED 22:42
PROVIDERS: Internal Medicine
DX: J44.1 Chronic obstructive pulmonary disease with (acute) exacerbation (principal); I50.9 Heart failure, unspecified; I10 Essential (primary) hypertension; I25.2 Old myocardial infarction; F17.200 Nicotine dependence, unspecified, uncomplicated
CPT/HCPCS: 36415; 71045; 80053; 81003; 83605; 83880; 84484; 85025; 85379; 87040; 93005; 93010; 94640; 96374; 96375; 99285-25; J0696; J1938; J1940; J2919

== ENCOUNTER 2025-05-05 22:27 | Emergency (ER) | payer OTHER ==
[~2025-05-05] VITALS: Ht 182.9 cm; Wt 78.0 kg
[~2025-05-05 22:27] MED LIST changes: +AMOX TR-K CLV1 EAC1 PO; +POTASSIUM CHLO10 MEQ PO; +PREDNISONE20 MG PO; +VALTREX1000 MG PO
--- OUTSIDE RECORDS SUMMARY | 2025-05-05 22:34 | XMS ---
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 E.D. VISIT COUNT (12 MO.) 6 CAROLYNN Rendon TOTAL 6 NOTE: Visits indicate total known visits. ED/UCC VISIT TRACKING (12 MO.) 05/05/2025 22:27 [facility]NN [place] TYPE: Emergency COMPLAINT: - SHOULDER PAIN 03/10/2025 22:43 [facility]OLYNN [place] TYPE: Emergency COMPLAINT: - DIFFICULTY BREATHING DIAGNOSES: - Chronic obstructive pulmonary disease with (acute) exacerbation - Essential (primary) hypertension - Heart failure, unspecified - Nicotine dependence, other tobacco product, uncomplicated - Nicotine dependence, unspecified, uncomplicated - Old myocardial infarction - Shortness of breath 01/24/2025 00:18 [facility]YNN [place] TYPE: Emergency COMPLAINT: - POSS SHINGLES DIAGNOSES: - Chronic obstructive pulmonary disease, unspecified - Heart failure, unspecified - Hypertensive heart disease with heart failure - roasterman (current) use of aspirin - Nicotine dependence, unspecified, uncomplicated - Old myocardial infarction - Other penitentiary (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 - Rash and other nonspecific skin eruption - Zoster without complications 01/08/2025 05:30 CAROLYNN [place] TYPE: Emergency COMPLAINT: - DIFFICULTY BREATHING DIAGNOSES: - Chronic obstructive pulmonary disease, unspecified - Heart failure, unspecified - Hypertensive heart disease with heart failure - retirement (current) use of aspirin - Nicotine dependence, [...] - Nicotine dependence, unspecified, uncomplicated - Other penitentiary (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 - Patient's other noncompliance with medication regimen for other reason - Shortness of breath - Underdosing of loop [high-ceiling] diuretics, initial encounter INPATIENT VISIT TRACKING (12 MO.) 11/30/2024 09:18 [facility]YNN [place] [place] TYPE: Critical Care COMPLAINT: - CHF COPD DIAGNOSES: - Acute respiratory failure with hypoxia - Atherosclerotic heart disease of [place] coronary artery without angina pectoris - Bronchopneumonia, unspecified organism - Heart failure, unspecified - Hypertensive heart disease with heart failure - Hypo-osmolality and hyponatremia - Nicotine dependence, other tobacco product, uncomplicated - Old myocardial infarction - Presence of coronary angioplasty implant and graft - Shortness of breath [email or web address]
[2025-05-05] MEDS ORDERED: POTASSIUM CHLORIDE 10 MEQ TABCR PO ONE (23:45)
[2025-05-05] MEDS ORDERED: FUROSEMIDE 40 MG TAB PO ONE (23:45)
[2025-05-05] MEDS ORDERED: POTASSIUM CHLO10 MEQ PO (23:56)
[2025-05-05] MEDS ORDERED: LASIX20 MG PO (23:56)
[2025-05-06 00:11] VITALS: BP 138/98
== END 2025-05-06 00:12 | disposition home or self-care (01) ==
LOC: ED 22:27
DX: M25.512 Pain in left shoulder (principal); I11.0 Hypertensive heart disease with heart failure; I25.2 Old myocardial infarction; J44.9 Chronic obstructive pulmonary disease, unspecified; I50.9 Heart failure, unspecified; F17.200 Nicotine dependence, unspecified, uncomplicated; Z79.899 Other long term (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
CPT/HCPCS: 71045; 73030; 99285-25; A9270

== ENCOUNTER 2025-05-22 23:31 | Emergency (ER) | payer OTHER ==
[~2025-05-22] VITALS: Ht 182.9 cm; Wt 70.0 kg
--- OUTSIDE RECORDS SUMMARY | 2025-05-22 23:38 | XMS ---
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 - 2 Visits in 30 Days CARE PROVIDERS -, [facility] Dentist: Safety Associate Current [place] PHONE: [phone] -[place]- Dentist: Safety Associate Current [facility] PHONE: [phone] [facility] Current FAMILY PHONE: [phone] Tushar has no Care Guidelines for this patient. E.D. VISIT COUNT (12 MO.) 7 CAROLYNN Rendon TOTAL 7 NOTE: Visits indicate total known visits. 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 - Pain in left shoulder 03/10/2025 22:43 CAROLYNN [place] [...] Hypertensive heart disease with heart failure - penitentiary (current) use of aspirin - Nicotine dependence, unspecified, uncomplicated - Old myocardial infarction - Other correction (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 - Rash and other nonspecific skin eruption - Zoster without complications 01/08/2025 05:30 CAROLYNN [facility] [place] [place] TYPE: Emergency COMPLAINT: - DIFFICULTY BREATHING DIAGNOSES: - Chronic obstructive pulmonary disease, unspecified - Heart failure, unspecified - Hypertensive heart disease with heart failure - terminal supervisor (current) 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 of aspirin - Nicotine dependence, [...] - Nicotine dependence, unspecified, uncomplicated - Other 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 (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 - Patient's other noncompliance with medication regimen for other reason - Shortness of breath - Underdosing of loop [high-ceiling] diuretics, initial encounter INPATIENT VISIT TRACKING (12 MO.) 11/30/2024 09:18 [facility]NN [place] TYPE: Critical Care COMPLAINT: - CHF COPD DIAGNOSES: - Acute respiratory failure with hypoxia - Atherosclerotic heart disease of [place] coronary artery without angina pectoris - Bronchopneumonia, unspecified organism - Heart failure, unspecified - Hypertensive heart disease with heart failure - Hypo-osmolality and hyponatremia - Nicotine dependence, other tobacco product, uncomplicated - Old myocardial infarction - Presence of coronary angioplasty implant and graft - Shortness of breath [email or web address]
[2025-05-22] MEDS ORDERED: ASPIRIN 81 MG CHEW PO ONE (23:45)
[2025-05-22] MEDS ORDERED: NITROGLYCERIN 0.4 MG SUBL SL PRN (23:45)
[2025-05-22 23:57] LABS: BASOPHILS 0.6 % (0.2-1.2); EOSINOPHILS 2.1 % (0.8-7.0); HEMATOCRIT 31.5 % (40.1-51.0); HEMOGLOBIN 9.7 g/dL (13.7-17.5); LYMPHOCYTES 21.4 % (21.8-53.1); MCH 26.1 PG (25.7-32.2); MCHC 30.8 g/dL (32.3-36.5); MCV 84.7 fL (79.0-92.2); MONOCYTES 11.5 % (5.3-12.2); NEUTROPHILS 64.4 % (34.0-67.9); PLATELET COUNT 319 K/uL (163-337); RBC 3.72 M/uL (4.63-6.08)
[2025-05-23 00:15] LABS: ALBUMIN 3.7 g/dL (3.4-5.0); ANION GAP 13.6 (7-21); BILIRUBIN, TOTAL 0.3 mg/dL (0.2-1.0); BUN/CREATININE RATIO 11.92 (6.0-28.6); CALCIUM 8.6 mg/dL (8.5-10.1); CREATININE, SERUM 1.51 mg/dL (0.70-1.30); MAGNESIUM 1.9 mg/dL (1.8-2.4); POTASSIUM 3.6 mmol/L (3.5-5.1); PROTEIN, TOTAL 7.4 g/dL (6.4-8.2)
[2025-05-23] MEDS ORDERED: MIRALAX119 GM PO (01:30)
[2025-05-23 01:43] VITALS: BP 129/94
--- NOTE | 2025-05-23 12:16 | EKG ---
[facility] [address] [facility] [place] [id number] Signed Normal sinus rhythm Right bundle branch block Left anterior fascicular block Bifascicular block Anteroseptal infarct (cited on or before 23-NOV-2024) Abnormal ECG When compared with ECG of 10-MAR-2025 22:47, Right bundle branch block has replaced Incomplete right bundle branch block Questionable change in initial forces of Lateral leads Poor data quality Confirmed by Sera Goetz DO ([id number]) on 05/23/2025 12:15:58 PM Electronically Signed By: SERA GOETZ DO 05/23/25 1216 PATIENT NAME: KODI FRANKEL Electrocardiogram DATE OF : 62 PHYSICIAN: SERA GOETZ DO REPORT #: [id number] REPORT IS CONFIDENTIAL AND NOT TO BE RELEASED WITHOUT AUTHORIZATION
== END 2025-05-23 01:48 | disposition home or self-care (01) ==
LOC: ED 23:31
PROVIDERS: Internal Medicine
DX: K21.9 Gastro-esophageal reflux disease without esophagitis (principal); K59.00 Constipation, unspecified; I11.0 Hypertensive heart disease with heart failure; I25.2 Old myocardial infarction; I50.9 Heart failure, unspecified; J44.9 Chronic obstructive pulmonary disease, unspecified; F17.200 Nicotine dependence, unspecified, uncomplicated; Z79.899 Other long term (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
CPT/HCPCS: 36415; 71045; 80053; 83735; 84484; 85025; 93005; 93010; 99284-25; A9270